=== PATIENT | male | born 1960 | race African-American/Black ===

== ENCOUNTER 2021-03-16 12:42 | Emergency (ER) | payer MEDICAID ==
[~2021-03-16] VITALS: Ht 182.9 cm; Wt 92.0 kg
[2021-03-16 12:43] VITALS: BP 178/102
[2021-03-16] MEDS ORDERED: SODIUM CHLORIDE 0.9% 1,000 ML IV ONE ×2 (13:00)
[2021-03-16] MEDS ORDERED: ZIPRASIDONE MESYLATE 20MG/VIAL IM PRN (13:00)
== END 2021-03-16 13:31 | disposition left against medical advice (07) ==
LOC: ER 12:58 → EDBD 12:58 → ER 13:31
DX: F16.10 Hallucinogen abuse, uncomplicated (principal); F17.210 Nicotine dependence, cigarettes, uncomplicated
CPT/HCPCS: 71045; 99283; J7030; Z7610